=== PATIENT | female | born 1965 | race Caucasian/White ===

== ENCOUNTER 2020-12-20 10:57 | Outpatient (REF) | payer OTHER, SELFPAY ==
--- NOTE | ~2020-12-20 | MM_ITS ---
EXAMINATION: MM SCREENING DIGITAL BREAST TOMOSYNTHESIS, BILATERAL CLINICAL INFORMATION: Screening. Asymptomatic. The lifetime risk of breast cancer based on the Tyrer-Cuzick Model is 5%. COMPARISON: Mammography: 09/02/2019, 10/16/2017, 04/10/2017 TECHNIQUE: Digital breast tomosynthesis is performed in both the craniocaudal and mediolateral oblique views along with computer-aided detection (CAD). Synthesized 2D images are generated from the tomosynthesis. Additional left MLO view is provided. FINDINGS: There are scattered areas of fibroglandular density (ACR BI-RADS breast composition Category b). There are no significant masses, abnormal calcifications, or other abnormalities. There is circumscribed nodule again noted central left breast on CC view similar to prior exams. No significant changes. MM/MM tomosynthesis screening BI IMPRESSION: No mammographic evidence of malignancy. ASSESSMENT: BI-RADS 2: Benign RECOMMENDATION: Routine annual mammography screening. This patient's information was entered into a reminder system with a target due date for their next mammogram.
== END 2020-12-20 10:58 | disposition home or self-care (01) ==
LOC: HO.MAMMO 10:57
PROVIDERS: Visit Provider Internal Medicine
DX: Z12.31 Encounter for screening mammogram for malignant neoplasm of breast (principal)
CPT/HCPCS: 77063; 77067

== ENCOUNTER 2021-06-13 10:21 | Emergency (ER) | payer OTHER, SELFPAY ==
--- NOTE | ~2021-06-13 | XR_ITS ---
EXAMINATION: CR X-RAY SHOULDER AND HUMERUS LEFT CLINICAL INFORMATION: Left shoulder/arm pain status post fall. COMPARISON: None TECHNIQUE: 3 views of the left shoulder and 2 views of the left humerus were obtained. FINDINGS: There is an acute, comminuted, mildly displaced fracture at the level of the left humeral surgical neck with superolateral extension into the humeral head and greater tuberosity. The left glenohumeral joint appears intact. Mild left acromioclavicular degenerative joint changes are seen. The visualized left ribs are intact. The soft tissues are unremarkable. XR/XR humerus LT IMPRESSION: 1. Acute, comminuted proximal left humeral fracture as detailed above. 2. Mild left acromioclavicular degenerative joint changes.
--- NOTE | ~2021-06-13 | XR_ITS ---
EXAMINATION: CR X-RAY SHOULDER AND HUMERUS LEFT CLINICAL INFORMATION: Left shoulder/arm pain status post fall. COMPARISON: None TECHNIQUE: 3 views of the left shoulder and 2 views of the left humerus were obtained. FINDINGS: There is an acute, comminuted, mildly displaced fracture at the level of the left humeral surgical neck with superolateral extension into the humeral head and greater tuberosity. The left glenohumeral joint appears intact. Mild left acromioclavicular degenerative joint changes are seen. The visualized left ribs are intact. The soft tissues are unremarkable. XR/XR shoulder LT min 2V IMPRESSION: 1. Acute, comminuted proximal left humeral fracture as detailed above. 2. Mild left acromioclavicular degenerative joint changes.
[2021-06-13 10:50] VITALS: BP 140/84; PULSE 97; RESP 18; TEMP 35.7; O2SAT 100; BMI 39.6
--- NOTE | 2021-06-13 12:22 | ED.UPPEXIN ---
HPI - Extremity Injury (Upper) General Chief Complaint: Fall Stated Complaint: lt shoulder pain Time Seen by Provider: 06/13/21 12:22 Source: patient and family (son) Mode of arrival: ambulatory Limitations: no limitations History of Present Illness HPI narrative: 55-year-old female who 5 days ago in [facility] was in the shower and slipped and fell into her left shoulder. She did not hit her head, no loss of consciousness, no neck pain, no numbness or tingling in her left upper extremity. Patient went to an ER in [place], where they gave her morphine and took an x-ray and found that she had fractured her left hip proximal humerus. Patient was referred to an orthopedic doctor who she could not see until today. Patient returned from [place] last night because she want to be with her family. Patient states she has no pain unless she moves her left arm. She does have a Percocet prescription but she has only taken 1 pill out of the 10 prescribed. Related Data Previous Rx's Medication Instructions Recorded hydrochlorothiazide 25 mg tablet 25 mg PO DAILY #30 tab 01/11/21 Allergies Allergy/AdvReac Type Severity Reaction Status Date / Time No Known Allergies Allergy Unverified 05/13/20 18:31 Review of Systems Review of Systems: Constitutional : No Weight loss, No Fever, No Chills, No Night Sweats,No Fatigue, No Malaise ENT/Mouth : No Hearing loss, No Ear Pain, No Nasal Congestion, NoSinus Pain, No Hoarseness, No sore throat, No Rhinorrhea, NoSwallowing Difficulty Eyes: No Eye Pain, No Swelling, No Redness, No Foreign Body, NoDischarge, No Vision Changes Cardiovascular : No Chest Pain, No SOB, No Dyspnea on Exertion, NoOrthopnea, No Edema, No Palpitations Respiratory : No Cough, No Sputum, No Wheezing, No Smoke Exposure, No Dyspnea Gastrointestinal : No Nausea, No Vomiting, No Diarrhea, NoConstipation, No abdominal Pain, No Hematochezia, No Melena Musculoskeletal : left shoulder pain Skin : No Skin Lesions, No rash Neuro : No Weakness, No Numbness, No Paresthesias, No Loss ofConsciousness, No Dizziness, No Headache PMFSH Past Medical History Medical History (Updated 06/13/21 @ 13:07 by TY Pacheco) Mild HTN Social History Social History Advance Directives: No Advance Directives Information Provided: No Patient : No Physical Exam Vital Signs: Vital Signs: Last Vital Signs Temp 96.2 F L 06/13/21 10:50 Pulse 97 06/13/21 10:50 Resp 18 06/13/21 10:50 BP 140/84 H 06/13/21 10:50 Pulse Ox 100 06/13/21 10:50 Body Mass Index 39.6 Const: General: cooperative, no acute distress, well developed, alert and awake Nutritional Appearance: well nourished Orientation/consciousness: patient oriented x3 Limitations: no limitations Eyes: Pupils: Equal, round and reactive pupils present Neck: Neck: Yes full ROM, Yes no lymphadenopathy and Yes supple Resp: Effort & Inspection: normal respiratory effort and able to speak in complete sentences Auscultation: clear to auscultation bilaterally, no crackles, no rales, no rhonchi and no wheezes Cardio: Rate: regular rate Rhythm: regular rhythm Heart sounds: S1 normal heart sound present and S2 normal heart sound present Skin: General skin exam: no rashes or lesions noted Neuro: General: patient oriented x3, tone normal and moves all extremities Cranial nerves: Yes Equal, round and reactive pupils present Extrem: Left upper extremity: normal capillary refill and shoulder/upper arm Details: inspection abnormal, tenderness Location: of the proximal humerus, swelling Location: of the proximal humerus and axillary nerve sensory function normal; Negative for no lacerations, no ecchymosis, no crepitus, no deformity and no unsual warmth; No no cyanosis and no edema Psych: Appearance: grossly normal Affect: normal affect Attitude: cooperative Thought process: Normal thought process present Course Course Course Narrative: XR left shoulder shows: FINDINGS: There is an acute, comminuted, mildly displaced fracture at the level of the left humeral surgical neck with superolateral extension into the humeral head and greater tuberosity. The left glenohumeral joint appears intact. Mild left acromioclavicular degenerative joint changes are seen. The visualized left ribs are intact. The soft tissues are unremarkable.? XR/XR humerus LT IMPRESSION: 1. Acute, comminuted proximal left humeral fracture as detailed above. 2. Mild left acromioclavicular degenerative joint changes. Applied left shoulder mobilizer, counseled patient to take the Percocet she was prescribed from [place], referred patient to Orthopedics. Counseled rest, ice, immobilization. Patient verbalized agreement and understanding. Discharge Plan Discharge Clinical Impression: Fracture, humerus closed Qualifiers: Encounter type: initial encounter Humerus Location: proximal Fracture morphology: unspecified fracture morphology Laterality: left Qualified Code(s): S42.202A - Unspecified fracture of upper end of left humerus, initial encounter for closed fracture Patient Disposition: Home, Self-Care Instructions: Arm Fracture in Adults (ED), How to Use a Sling (ED), R.I.C.E. Treatment (ED) Additional Instructions: PLease call Orthopedics at [phone]. I have referred you, but please call them if you do not hear from them by tomorrow. Keep your sling on, and do not use your left arm. Take the Percoset you have as needed, use at night especially. If you have worsening pain, if your hand becomes numb or you cannot use your fingers, please return to be seen. ?Por favor llame a [employer] al [phone]. Lo he recomendado, akhil ll?melos si no tiene noticias de ellos para ma?michael. Mantenga puesto el cabestrillo y no utilice el brazo berhane. [place] el Percoset que tenga seg?n sea necesario, util?celo especialmente por la noche. Si tiene un dolor que empeora, si garza mano se adormece o no puede usar los dedos, regrese para que lo vean. Prescriptions: No Action hydrochlorothiazide 25 mg tablet 25 mg PO DAILY Qty: 30 RF: 6 Referrals: Tunde Raza MD [Physician] - 2 days (left mildly displaced comminuted proximal humerus fracture ) Interventions: ED Discharge Assessment Last Done: 06/13/21 13:16 Discharge Date/Time: 06/13/21 13:17 Print Language: Serbian
== END 2021-06-13 13:17 | disposition home or self-care (01) ==
PROVIDERS: Emergency Provider Student in an Organized Health Care Education/Training Program; PCP Internal Medicine
DX: S42.202A Unspecified fracture of upper end of left humerus, initial encounter for closed fracture (principal); M79.602 Pain in left arm; W18.2XXA Fall in (into) shower or empty bathtub, initial encounter; Y93.E1 Activity, personal bathing and showering; Y92.002 Bathroom of unspecified non-institutional (private) residence as the place of occurrence of the external cause; Y99.9 Unspecified external cause status; Z79.899 Other long term (current) drug therapy
CPT/HCPCS: 73030; 73060; 99283; 99284

== ENCOUNTER 2021-06-23 07:37 | Outpatient (REF) | payer OTHER, SELFPAY ==
--- NOTE | ~2021-06-23 | XR_ITS ---
EXAMINATION: XR SHOULDER, LEFT CLINICAL INFORMATION: Pain in the shoulder COMPARISON: Radiograph 06/13/2021 TECHNIQUE: Two views of the left shoulder. FINDINGS: The proximal left humeral metaphyseal fracture is again noted. There is persistent medial displacement of the distal fragment by one half shaft width. Greater tuberosity involvement again noted with minimal displacement. The glenohumeral joint remains aligned. The visualized lung is clear. The visualized ribs are intact. XR/XR shoulder LT min 2V IMPRESSION: Unchanged alignment of the proximal left humeral fracture.
== END 2021-06-23 07:38 | disposition home or self-care (01) ==
LOC: HO.HOSX 07:37
PROVIDERS: Visit Provider Physician Assistant
DX: S42.202A Unspecified fracture of upper end of left humerus, initial encounter for closed fracture (principal)
CPT/HCPCS: 73030; 99202

== ENCOUNTER 2021-07-26 07:12 | Outpatient (REF) | payer OTHER, SELFPAY ==
--- NOTE | ~2021-07-26 | XR_ITS ---
EXAMINATION: XR SHOULDER, LEFT CLINICAL INFORMATION: Fracture COMPARISON: Previous x-rays most recent May 2021 TECHNIQUE: Two views of the left shoulder. FINDINGS: There is a left humeral neck fracture. Alignment appears unchanged. There is increasing bony callus formation. Fracture line is still seen. The humeral head appears low lying with respect to the glenoid. This may be secondary to a joint effusion. There is mild arthritis at the acromioclavicular joint. Soft tissues are unremarkable. XR/XR shoulder LT min 2V IMPRESSION: Healing left humeral neck fracture.
== END 2021-07-26 07:13 | disposition home or self-care (01) ==
LOC: HO.HOSX 07:12
PROVIDERS: Visit Provider Physician Assistant
DX: S42.202D Unspecified fracture of upper end of left humerus, subsequent encounter for fracture with routine healing (principal)
CPT/HCPCS: 73030; 99212

== ENCOUNTER 2021-09-05 07:08 | Outpatient (REF) | payer OTHER, SELFPAY | END 2021-09-05 07:09 | disposition home or self-care (01) | LOC: HO.HOSX 07:08 | PROVIDERS: Visit Provider Physician Assistant | DX: Z13.89 Encounter for screening for other disorder (principal) ==

== ENCOUNTER 2021-09-09 11:17 | Outpatient (REF) | payer OTHER, SELFPAY ==
--- NOTE | ~2021-09-09 | XR_ITS ---
EXAMINATION: XR CHEST CLINICAL INFORMATION: Dyspnea COMPARISON: None TECHNIQUE: 2 views of the chest were obtained. FINDINGS: The cardiac and mediastinal contours are normal. The lung volumes are low. There is bilateral patchy infiltrates. Covid infection should be excluded. There is no pleural effusion or pneumothorax. There are degenerative changes of the spine. XR/XR chest 2V IMPRESSION: Low lung volumes and bilateral infiltrates suggestive of pneumonia. Covid infection should be excluded.
== END 2021-09-09 11:18 | disposition home or self-care (01) ==
LOC: HO.XRAY 11:17
PROVIDERS: PCP Internal Medicine; Visit Provider Internal Medicine
DX: R06.00 Dyspnea, unspecified (principal)
CPT/HCPCS: 71046

== ENCOUNTER 2021-10-04 07:42 | Outpatient (REF) | payer OTHER, SELFPAY ==
--- NOTE | ~2021-10-04 | XR_ITS ---
EXAMINATION: XR SHOULDER, LEFT CLINICAL INFORMATION: Left shoulder pain. COMPARISON: 07/26/2021 TECHNIQUE: 2 views of the left shoulder. FINDINGS: Progressive healing of the proximal humeral fracture is noted with unchanged alignment. There is increased osseous bridging at the fracture site at the surgical neck. No new fractures. Mild glenohumeral and acromioclavicular osteochondritis. XR/XR shoulder LT min 2V IMPRESSION: Progressive healing of the proximal humeral fracture. Unchanged alignment.
== END 2021-10-04 07:43 | disposition home or self-care (01) ==
LOC: HO.HOSX 07:42
PROVIDERS: Visit Provider Physician Assistant
DX: S42.202D Unspecified fracture of upper end of left humerus, subsequent encounter for fracture with routine healing (principal)
CPT/HCPCS: 73030; 99212

== ENCOUNTER 2021-11-01 07:39 | Outpatient (REF) | payer OTHER, SELFPAY | END 2021-11-01 07:40 | disposition home or self-care (01) | LOC: HO.HOSX 07:39 | PROVIDERS: Visit Provider Physician Assistant | DX: Z13.89 Encounter for screening for other disorder (principal) ==

== ENCOUNTER 2021-11-15 07:18 | Outpatient (REF) | payer OTHER, SELFPAY ==
--- NOTE | ~2021-11-15 | XR_ITS ---
EXAMINATION: XR SHOULDER, LEFT CLINICAL INFORMATION: Fracture COMPARISON: Previous x-ray 10/04/2021 TECHNIQUE: Two views of the left shoulder. FINDINGS: There is a healing fracture of the left proximal humerus. Alignment appears unchanged. No other fracture is seen. The joint spaces are normal. Soft tissues are normal. XR/XR shoulder LT min 2V IMPRESSION: Healing left proximal humerus fracture.
== END 2021-11-15 07:19 | disposition home or self-care (01) ==
LOC: HO.HOSX 07:18
PROVIDERS: Visit Provider Physician Assistant
DX: S42.202A Unspecified fracture of upper end of left humerus, initial encounter for closed fracture (principal)
CPT/HCPCS: 73030; 99212

== ENCOUNTER 2021-12-05 09:12 | Outpatient (REF) | payer OTHER, SELFPAY ==
[2021-12-05 10:33] LABS: Alanine Aminotransferase 24 U/L (0-31); Alkaline Phosphatase 146 U/L (39-117); Anion Gap 12 (12-20); Aspartate Amino Transferase 27 U/L (5-31); Bilirubin Total 0.2 mg/dL (0.0-1.0); Blood Urea Nitrogen 10 mg/dL (9-16); Calcium 10.6 mg/dL (8.4-10.2); Carbon Dioxide 24 mmol/L (22-29); Chloride 111 mmol/L (96-108); Cholesterol 156 mg/dL; Estimated Glomerular Filt Rate > 60; Glucose Fasting 79 mg/dL (60-99); HDL Cholesterol 38 mg/dL; LDL Cholesterol Calculated 80 mg/dl; Potassium 4.5 mmol/L (3.3-5.1); Sodium 142 mmol/L (135-145); Total Protein 7.5 g/dL (6.5-8.0); Triglycerides 191 mg/dL
[2021-12-05 11:10] LABS: Folate 18.7 ng/mL (> or = 4.0); Vitamin B12 344 pg/mL (200-900)
[2021-12-09 13:12] LABS: Vitamin D 25-OH, D2 <4 ng/mL; Vitamin D 25-OH, D3 16 ng/mL; Vitamin D 25-OH, Total 16 ng/mL (30-100)
[2021-12-11 00:41] LABS: Intrinsic Factor Antibodies Negative (Negative)
[2021-12-11 09:47] LABS: Parietal Cell Antibody <=20.0 Unit (<=20.0)
== END 2021-12-05 09:13 | disposition home or self-care (01) ==
LOC: HO.LAB 09:12
PROVIDERS: PCP Internal Medicine; Visit Provider Internal Medicine
DX: I10 Essential (primary) hypertension (principal); E78.5 Hyperlipidemia, unspecified; E53.8 Deficiency of other specified B group vitamins; E55.9 Vitamin D deficiency, unspecified
CPT/HCPCS: 36415; 80053; 80061; 82306; 82607; 82746; 83516; 86340

== ENCOUNTER → 2021-12-13 13:41 | Outpatient (BNVA) | payer OTHER, SELFPAY | PROVIDERS: PCP Internal Medicine; Visit Provider Internal Medicine Endocrinology, Diabetes & Metabolism | DX: E83.52 Hypercalcemia (principal) | CPT/HCPCS: 99212 ==

== ENCOUNTER 2021-12-14 10:14 | Outpatient (REF) | payer OTHER, SELFPAY ==
[2021-12-16 05:26] LABS: Rubeola IgG (Measles) >300.00 AU/mL
[2021-12-17 01:46] LABS: TS Negative Control Passed; TS Panel A 1; TS Panel B 0; TS Positive Control Passed; TSpotTB Negative (Negative)
== END 2021-12-14 10:15 | disposition home or self-care (01) ==
LOC: HO.LAB 10:14
PROVIDERS: PCP Internal Medicine; Visit Provider Internal Medicine
DX: Z01.84 Encounter for antibody response examination (principal); Z11.1 Encounter for screening for respiratory tuberculosis
CPT/HCPCS: 36415; 86481; 86735; 86762; 86765

== ENCOUNTER 2021-12-23 12:00 | Outpatient (RCR) | payer OTHER, SELFPAY ==
--- NOTE | 2021-10-19 13:27 | MHC.PT.EP ---
[facility] [place] Office [place] Office [place] Office [address] Josaih Prabhakar [address] [phone] F: [phone] F: [phone] F: [phone] F: [phone] Physical Therapy Plan of Care Date of Evaluation: Date of Surgery: N/A Diagnosis: fracture of upper end of left humerus Assessment: pt presents to PT post-proximal humeral fx that occurred back in May 2021. pt presents to physical therapy with pain, decreased range of motion, decreased strength, impaired functional mobility, impaired postural awareness. pt is a good candidate for skilled PT due to age, potential remediation of impairments, typical disease/condition progression and prognosis, comorbidities, and motivation. pt would benefit from tailored strengthening and stretching exercise program, functional training, postural re-training, neuromuscular re-education, modalities as needed for pain, equipment safety demonstration. Frequency and Duration: The patient will be seen 2x/wk for 8 wks Short Term Goals: pt will be I w/ HEP to promote self-management of condition. pt will improve L shoulder flexion AROM by 15 degrees to promote ease in reaching for cooking utensils in cabinets for meal prep. Long-Term Goals: pt will improve L functional external rotation AROM to reach at least C3 to promote ease in washing and brushing her hair. pt will improve L shoulder and elbow flexion strength by 1 MMT grade to promote ease in carrying groceries. Treatment Plan: Modalities to reduce pain, spasms and effusion. Manual therapy to restore motion and function. Therapeutic exercise to improve strength and flexibility. Neuromuscular re-education for posture and balance. Therapeutic activities to return to functional activities of daily living. Electronically signed by: Sabina Brunson PT, DPT Please sign and return to therapist. Thank you for your referral.
--- NOTE | 2021-12-23 13:30 | MHC.PT.DC ---
[facility] [place] Office [place] Office [place] Office [address] Josiah Prabhakar [address] [facility] [phone] F: [phone] F: [phone] F: [phone] F: [phone] Physical Therapy Discharge Report Diagnosis: fracture of upper end of left humerus Date of Surgery: N/A Date of Evaluation: 10/19/21 Date of Discharge: 12/23/21 Treatments to Date: 17 Cancellations to Date: 2 No Shows to Date: 0 Discharge Status: Improved Function Independent with HEP Discharge Summary: The patient overall has been consistently reporting no pain in her shoulder. She has improved her active range of motion in all planes significantly and her strength is within functional limits. She was given an updated HEP to continue to maintain her range and improve her strength. She is independent with her home exercise program. The patient is discharged from this physical therapy plan of care to her home exercise program. Electronically signed by: Sabina Brunson PT, DPT Please sign and return to therapist. Thank you for your referral.
== END 2021-12-23 13:31 | disposition home or self-care (01) ==
LOC: HO.PT 12:00
PROVIDERS: PCP Internal Medicine; Visit Provider Physician Assistant
DX: S42.202D Unspecified fracture of upper end of left humerus, subsequent encounter for fracture with routine healing (principal)
CPT/HCPCS: 97110; 97140; 97162; 97164; 97530

== ENCOUNTER 2022-03-08 15:50 | Outpatient (REF) | payer OTHER, SELFPAY ==
[2022-03-14 01:06] LABS: HPV mRNA E6/E7 rflx Not Detected (Not Detected)
== END 2022-03-08 15:51 | disposition home or self-care (01) ==
LOC: HO.LNP 15:50
PROVIDERS: Visit Provider Advanced Practice Midwife
DX: Z01.419 Encounter for gynecological examination (general) (routine) without abnormal findings (principal); Z11.51 Encounter for screening for human papillomavirus (HPV)
CPT/HCPCS: 87624; 88142

== ENCOUNTER 2022-05-11 08:45 | Outpatient (REF) | payer OTHER, SELFPAY ==
--- NOTE | ~2022-05-11 | MM_ITS ---
EXAMINATION: MM SCREENING DIGITAL BREAST TOMOSYNTHESIS, BILATERAL CLINICAL INFORMATION: Screening. Asymptomatic. The lifetime risk of breast cancer based on the Tyrer-Cuzick Model is 5%. COMPARISON: Mammography: 12/20/2020, 09/02/2019, 10/16/2017 TECHNIQUE: Digital breast tomosynthesis is performed in both the craniocaudal and mediolateral oblique views along with computer-aided detection (CAD). Synthesized 2D images are generated from the tomosynthesis. Additional bilateral MLO views are provided. FINDINGS: There are scattered areas of fibroglandular density (ACR BI-RADS breast composition Category b). There are no significant masses, abnormal calcifications, or other abnormalities. Parenchymal pattern is similar to prior studies. There is no developing density or architectural abnormality. Circumscribed nodule central left breast on CC view is stable from prior studies. The axilla and skin contours are unremarkable. No significant changes. MM/MM tomosynthesis screening BI IMPRESSION: No mammographic evidence of malignancy. ASSESSMENT: BI-RADS 2: Benign RECOMMENDATION: Routine annual mammography screening. This patient's information was entered into a reminder system with a target due date for their next mammogram.
== END 2022-05-11 08:46 | disposition home or self-care (01) ==
LOC: HO.MAMMO 08:45
PROVIDERS: PCP Internal Medicine; Visit Provider Advanced Practice Midwife
DX: Z12.31 Encounter for screening mammogram for malignant neoplasm of breast (principal)
CPT/HCPCS: 77063; 77067

== ENCOUNTER 2022-06-07 09:49 | Outpatient (REF) | payer OTHER, SELFPAY ==
[2022-06-07 10:50] LABS: Albumin Level 4.1 g/dL (3.5-5.0); Calcium 10.2 mg/dL (8.4-10.2)
[2022-06-07 11:15] LABS: Vitamin D 25-OH Total 34.1 ng/mL (>30)
[2022-06-08 13:21] LABS: Calcium (PTHI) 10.5 mg/dL (8.6-10.4); PTHI 164 pg/mL (16-77)
== END 2022-06-07 09:50 | disposition home or self-care (01) ==
LOC: HO.LAB 09:49
PROVIDERS: PCP Internal Medicine; Visit Provider Internal Medicine Endocrinology, Diabetes & Metabolism
DX: E83.52 Hypercalcemia (principal)
CPT/HCPCS: 36415; 82040; 82306; 82310; 83970

== ENCOUNTER 2022-06-14 14:12 | Outpatient (REF) | payer OTHER, SELFPAY ==
--- NOTE | ~2022-06-14 | MM_ITS ---
EXAMINATION: BONE DENSITOMETRY CLINICAL INDICATION: Hypercalcemia. COMPARISON: None (current study represents initial baseline exam). TECHNIQUE: Using a Notorious DXA System (software version: 13.1) manufactured by [employer], dual-energy x-ray absorptiometry was performed of the lumbar spine, left hip, left forearm radius 33%. The images are of good technical quality. Summary results are attached. FINDINGS: AP SPINE L1-L4: BMD 0.988 g/cm2, Z-score -0.9, T-score -1.6, osteopenia. LEFT FEMUR, NECK: BMD 0.808 g/cm2, Z-score -0.7, T-score -1.7, osteopenia. LEFT FEMUR, TOTAL: BMD 0.910 g/cm2, Z-score -0.2, T-score -0.8, normal. LEFT FOREARM RADIUS 33%: BMD 0.626 g/cm2, Z-score -2.1, T-score -2.9, osteoporosis. IDENTIFIED RISK FACTORS: Early menopause, history of fracture (adult), hyperparathyroidism, secondary osteoporosis. HISTORY OF FRACTURE: Humerus. MEDICATIONS: Vitamin D. MM/XR DEXA appendicular skeleton IMPRESSION: 1. DIAGNOSIS: Osteoporosis based on the lowest T-score value of -2.9 in the forearm radius 33% and history of fracture of humerus applying World Health Organization criteria. 2. 10-YEAR FRACTURE RISK PREDICTION, FRAX: According to the guidelines, FRAX calculation should only be performed on patients in the osteopenia bone density category. Therefore, FRAX was not performed on this patient. 3. Treatment Recommendations: NOF guidelines recommend consideration for treatment in postmenopausal women and men age 50 and older presenting with the following: -A hip or vertebral (clinical or morphometric) fracture. -T-score less than or equal to -2.5 at the femoral neck or spine after appropriate evaluation to exclude secondary causes. -Low bone mass at the hip or spine and a 10-year fracture probability by FRAX of greater than or equal to 3% for hip fracture or greater than or equal to 20% for major osteoporotic fracture based on the [place] adapted WHO algorithm. 4. Other Recommendations: All treatment decisions require clinical judgment and consideration of individual patient factors, including patient preferences, comorbidities, previous drug use, risk factors not captured in the FRAX model (e.g. frailty, falls, vitamin D deficiency, increased bone turnover, interval significant decline in bone density) and possible under or overestimation of fracture risk by FRAX. Additional medical evaluation for secondary cause of low bone mineral density may be appropriate. FUTURE SCAN RECOMMENDATION: People with diagnosed cases of osteoporosis or at high risk for fracture should have regular bone mineral density tests. For patients eligible for Medicare, routine testing is allowed once every 2 years. The testing frequency can be increased to one year for patients who have rapidly progressing disease, those who are receiving or discontinuing medical therapy to restore bone mass, or have additional risk factors.
[2022-06-14 15:49] LABS: Alanine Aminotransferase 28 U/L (0-31); Albumin Level 4.2 g/dL (3.5-5.0); Alkaline Phosphatase 159 U/L (39-117); Anion Gap 15 (12-20); Aspartate Amino Transferase 34 U/L (5-31); Bilirubin Total 0.5 mg/dL (0.0-1.0); Blood Urea Nitrogen 13 mg/dL (9-16); Calcium 10.4 mg/dL (8.4-10.2); Carbon Dioxide 23 mmol/L (22-29); Chloride 107 mmol/L (96-108); Cholesterol 154 mg/dL; Estimated Glomerular Filt Rate 52; Glucose Fasting 116 mg/dL (60-99); HDL Cholesterol 45 mg/dL; LDL Cholesterol Calculated 85 mg/dl; Potassium 3.7 mmol/L (3.3-5.1); Sodium 141 mmol/L (135-145); Total Protein 7.8 g/dL (6.5-8.0); Triglycerides 121 mg/dL
== END 2022-06-14 14:13 | disposition home or self-care (01) ==
LOC: HO.MAMMO 14:12
PROVIDERS: PCP Internal Medicine; Visit Provider Internal Medicine Endocrinology, Diabetes & Metabolism
DX: Z13.820 Encounter for screening for osteoporosis (principal); Z78.0 Asymptomatic menopausal state; E78.5 Hyperlipidemia, unspecified; E83.52 Hypercalcemia
CPT/HCPCS: 36415; 77081; 80053; 80061

== ENCOUNTER 2022-06-19 11:16 | Outpatient (REF) | payer OTHER, SELFPAY ==
[2022-06-19 12:50] LABS: Creatinine, mg/dL 53.71
[2022-06-19 13:12] LABS: Creatinine, 24Hr Urine 1.1 G/Day (1.0-2.0); Total Volume 24 Hour Urine 2100 mL
[2022-06-21 17:21] LABS: Calcium, 24 Hr Urine 193 mg/24 h; Calcium/Creatinine Ratio 164 mg/g creat (30-275); Creatinine 24Hr Urine 1.18 g/24 h (0.50-2.15)
== END 2022-06-19 11:17 | disposition home or self-care (01) ==
LOC: HO.LNP 11:16
PROVIDERS: Visit Provider Internal Medicine Endocrinology, Diabetes & Metabolism
DX: E83.52 Hypercalcemia (principal)
CPT/HCPCS: 82340; 82570

== ENCOUNTER → 2022-07-05 15:55 | Outpatient (BNVA) | payer OTHER, SELFPAY | PROVIDERS: PCP Internal Medicine; Visit Provider Internal Medicine Endocrinology, Diabetes & Metabolism | DX: E83.52 Hypercalcemia (principal) | CPT/HCPCS: 99212 ==

== ENCOUNTER 2022-12-09 08:45 | Outpatient (REF) | payer OTHER, SELFPAY ==
[2022-12-09 09:30] LABS: Alanine Aminotransferase 24 U/L (0-31); Alkaline Phosphatase 170 U/L (39-117); Anion Gap 11 (12-20); Aspartate Amino Transferase 26 U/L (5-31); Bilirubin Total 0.6 mg/dL (0.0-1.0); Blood Urea Nitrogen 14 mg/dL (9-16); Carbon Dioxide 26 mmol/L (22-29); Chloride 112 mmol/L (96-108); Cholesterol 150 mg/dL; Estimated Glomerular Filt Rate 56; Glucose Fasting 89 mg/dL (60-99); HDL Cholesterol 43 mg/dL; LDL Cholesterol Calculated 85 mg/dl; Potassium 4.8 mmol/L (3.3-5.1); Sodium 144 mmol/L (135-145); Total Protein 7.3 g/dL (6.5-8.0); Triglycerides 110 mg/dL
[2022-12-09 09:58] LABS: Folate 13.8 ng/mL (> or = 4.0); Vitamin B12 540 pg/mL (200-900); Vitamin D 25-OH Total 37.1 ng/mL (>30)
== END 2022-12-09 08:46 | disposition home or self-care (01) ==
LOC: HO.LAB 08:45
PROVIDERS: PCP Internal Medicine; Visit Provider Internal Medicine
DX: E53.8 Deficiency of other specified B group vitamins (principal); E55.9 Vitamin D deficiency, unspecified; E78.5 Hyperlipidemia, unspecified
CPT/HCPCS: 36415; 80053; 80061; 82306; 82607; 82746

== ENCOUNTER → 2023-01-15 07:44 | Outpatient (BNVA) | payer OTHER, SELFPAY | PROVIDERS: PCP Internal Medicine; Referring Provider Internal Medicine; Visit Provider Physician Assistant | DX: Z01.818 Encounter for other preprocedural examination (principal); K64.9 Unspecified hemorrhoids; Z86.010 Personal history of colon polyps | CPT/HCPCS: 99202 ==

== ENCOUNTER 2023-04-14 09:08 | Outpatient (REF) | payer OTHER, SELFPAY | END 2023-04-14 09:09 | disposition home or self-care (01) | LOC: HO.LAB 09:08 | PROVIDERS: PCP Internal Medicine; Visit Provider Internal Medicine | DX: Z13.89 Encounter for screening for other disorder (principal) ==

== ENCOUNTER 2023-04-18 16:35 | Outpatient (AMB) | payer OTHER, SELFPAY ==
[2023-04-18 16:51] VITALS: BP 130/78; BMI 32.9
--- NOTE | 2023-04-18 16:51 | A.OFFPC_ITS ---
Vital Signs 04/18/23 16:51 Height 5 ft 1 in Weight 174 lb BMI 32.9 BP 130/78 Blood Pressure Location Lt brachial Position Sitting Intake Visit Reasons: bp Intake Note: Patient here for a follow bp Director Transition Required: No Accompanied by: Self / Same As Patient Allergies No Known Allergies Allergy (Verified 04/18/23 17:08) Medication List - Last Reconciled 04/18/23 by Natividad Valdes MD atorvastatin 40 mg PO QPM 90 days bisacodyl (Dulcolax (bisacodyl)) 10 mg (2 x 5 mg) PO ONCE 1 day cholecalciferol (vitamin D3) 50 mcg PO DAILY 90 days cyanocobalamin (vitamin B-12) 1,000 mcg PO DAILY 90 days folic acid 1 mg PO DAILY 90 days hydrocortisone 2.5% (Proctosol HC) 1 appl [place] BEDTIME PRN lisinopril 30 mg PO DAILY 90 days methylcellulose (laxative) (Citrucel) 500 mg PO BID nabumetone 750 mg PO BID polyethylene glycol 3350 (Miralax) 238 grams PO ONCE PRN 1 day Tobacco use date assessed: 12/11/22 Dental Screening Dental Screen Date: 04/18/23 Did you have a dental visit in the last 12 months?: No Did you have a dental problem in the last 6 months where you did not have access to dental care?: No Was dental information given to patient?: Patient has dentist HPI HPI Comments History of Present Illness Details This is a 57-year-old female with hypertension, dyslipidemia, B12 deficiency and primary hyperparathyroidism that comes today for follow-up on her conditions. Blood pressure stable. Last cholesterol was well control. Vitamin B12 on supplements. Will have parathyroid surgery during fall. No chest pain or shortness of breath. [facility] Medical History B12 deficiency Class 1 obesity with body mass index (BMI) of 31.0 to 31.9 in adult Dyslipidemia Dyspnea Essential hypertension Hypercalcemia Hypovitaminosis D Immunization due Physical exam Surgical History H/O hemorrhoidectomy History of tubal ligation Family History Father Hypertension Mother No problems noted. Social History Housing: Apartment Alcohol intake: current Alcohol intake frequency: holidays/special occasions only Alcohol type: wine Patient Tobacco Use Status: Former Tobacco user Tobacco use type: Cigarette e-Cigarette/Vaping Use: Never Used Second Hand Smoke Exposure: No service: No Current occupational status: unemployed Current occupation: rt hand Cognitive needs: No Hearing needs: No Vision needs: No Questionnaire PHQ-9 Over the last 2 weeks, how often have you been bothered by any of the following problems? 1. Little interest or pleasure in doing things: not at all 2. Feeling down, depressed, or hopeless: not at all 3. Trouble falling or staying asleep, or sleeping too much: not at all 4. Feeling tired or having little energy: not at all 5. Poor appetite or overeating: not at all 6. Feeling bad about yourself - or that you are a failure or have let yourself or your family down: not at all 7. Trouble concentrating on things, such as reading the newspaper or watching television: not at all 8. Moving or speaking so slowly that other people could have noticed. Or the opposite - being so fidgety or restless that you have been moving around a lot more than usual: not at all 9. Thoughts that you would be better off or of hurting yourself in some way: not at all Total score: 0 Depression Screening Interpretation: Negative 33033 - PHQ-9 Billing: Yes Source: Developed by Drs. Martin Katz, Tom Martines and colleagues, with an educational teresa from [employer]. Thrive Questionnaire Date Thrive assessed: 12/11/22 XIMENA-7 AMB Questionnaire XIMENA-7 Date XIMENA - 7 assessed: 12/11/22 Source: Developed by Drs. Martin Katz, Tom Martines and colleagues, with an educational teresa from [employer]. Review of Systems Const All systems reviewed & are unremarkable except as noted in HPI and below Eyes Reports no additional complaints, Denies change in vision and Denies other visual disturbances Card Denies chest pain at rest, Denies chest pain with activity, Denies edema, Denies irregular heart rhythm, Denies claudication, Denies dyspnea, Denies dyspnea on exertion, Denies orthopnea, Denies paroxysmal nocturnal dyspnea and Denies slow heart rate Resp Denies cough, Denies dyspnea and Denies dyspnea on exertion GI Denies abdominal pain, Denies change in bowel habits, Denies excessive flatus, Denies nausea and Denies vomiting Denies urinary incontinence, Denies urinary hesitancy and Denies urinary urgency Musc Denies abnormal gait, Denies atrophy, Denies deformity and Denies limited range of motion Skin/Breast Denies bleeding lesions, Denies changing lesions and Denies rash Neuro Denies abnormal gait and Denies lack of coordination Physical exam (Primary Care) Vital Signs: Last Vital Signs BP 130/78 04/18/23 16:51 BMI result Body Mass Index 32.9 Tobacco/Smoking Status: Tobacco use Status Tobacco use date assessed 12/11/22 04/18/23 16:54 Patient Tobacco Use Status Former Tobacco user 04/18/23 16:54 Tobacco use type Cigarette 04/18/23 16:54 e-Cigarette/Vaping Use Never Used 04/18/23 16:54 PHQ-9: PHQ-9 Score PHQ-9: Total score 0 04/18/23 17:20 Depression Screening Interpretation: Negative Thrive Assessment: Date of Thrive Assessment Date Thrive assessed 12/11/22 04/18/23 16:54 Eyes General: appearance normal, both eyes and all related structures Eyelids: Yes eyelids normal Conjunctivae: conjunctivae normal Neck Neck: Yes normal visual inspection and Yes supple Resp Effort & Inspection: normal respiratory effort Auscultation: clear to auscultation bilaterally Cardio Jugular venous distension: no JVD Rate: regular rate Rhythm: regular rhythm Heart sounds: S1 normal heart sound present and S2 normal heart sound present Extrem General: Yes full ROM Assessment and Plan Assessment & Plan (1) Essential hypertension: Code(s): I10 - Essential (primary) hypertension Plan: Continue lisinopril. Blood pressure goal is equal or less than 130/80. (2) Dyslipidemia: Code(s): E78.5 - Hyperlipidemia, unspecified Plan: Continue statins. (3) B12 deficiency: Code(s): E53.8 - Deficiency of other specified B group vitamins Plan: Continue vitamin B12 supplements. (4) Primary hyperparathyroidism: Code(s): E21.0 - Primary hyperparathyroidism Plan: Will have surgery in fall. Orders: Orders Lipid Panel 4 Months E78.5 - Hyperlipidemia, unspecified Vitamin D 25-OH Total 4 Months E55.9 - Vitamin D deficiency, unspecified Vitamin B12 and Folate 4 Months E53.8 - Deficiency of other specified B group vitamins Comprehensive [place]. Panel Fast 4 Months I10 - Essential (primary) hypertension Coding Level of Care Code Est Pt Level 4 (64458) Diagnoses Essential hypertension I10 Dyslipidemia E78.5 B12 deficiency E53.8 Primary hyperparathyroidism E21.0 Time Spent (min) 22
== END 2023-04-18 17:18 | disposition home or self-care (01) ==
PROVIDERS: PCP Internal Medicine; Visit Provider Internal Medicine
DX: I10 Essential (primary) hypertension (principal); E78.5 Hyperlipidemia, unspecified; E53.8 Deficiency of other specified B group vitamins; E21.0 Primary hyperparathyroidism
CPT/HCPCS: 99214

== ENCOUNTER 2023-05-22 15:51 | Outpatient (REF) | payer OTHER, SELFPAY ==
--- NOTE | ~2023-05-22 | MM_ITS ---
EXAMINATION: MM SCREENING DIGITAL BREAST TOMOSYNTHESIS, BILATERAL CLINICAL INFORMATION: Screening. Asymptomatic. COMPARISON: Mammography: This study is compared with prior exams dating back to 2017. TECHNIQUE: Digital breast tomosynthesis is performed in both the craniocaudal and mediolateral oblique views along with computer-aided detection (CAD). Synthesized 2D images are generated from the tomosynthesis. FINDINGS: The breasts are almost entirely fatty (ACR BI-RADS breast composition Category a). There are no significant masses, abnormal calcifications, or other abnormalities. MM/MM tomosynthesis screening BI IMPRESSION: No mammographic evidence of malignancy. ASSESSMENT: BI-RADS BI-RADS 1 - Negative RECOMMENDATION: Routine annual mammography screening. 1 year F/U This examination should not preclude the clinical evaluation of a suspicious palpable abnormality. This patient's information was entered into a reminder system with a target due date for their next mammogram.
== END 2023-05-22 15:52 | disposition home or self-care (01) ==
LOC: HO.MAMMO 15:51
PROVIDERS: PCP Internal Medicine; Visit Provider Internal Medicine
DX: Z12.31 Encounter for screening mammogram for malignant neoplasm of breast (principal)
CPT/HCPCS: 77063; 77067

== ENCOUNTER → 2023-05-22 16:30 | Outpatient (BNV) | payer OTHER, SELFPAY | PROVIDERS: PCP Internal Medicine; Visit Provider Radiology Diagnostic Radiology | DX: Z12.31 Encounter for screening mammogram for malignant neoplasm of breast (principal) | CPT/HCPCS: 77063; 77067 ==

== ENCOUNTER 2023-07-28 07:04 | Outpatient (REF) | payer OTHER, SELFPAY ==
[2023-07-28 07:58] LABS: Alanine Aminotransferase 20 U/L (0-31); Albumin Level 3.8 g/dL (3.5-5.0); Alkaline Phosphatase 141 U/L (39-117); Anion Gap 10 (12-20); Aspartate Amino Transferase 27 U/L (5-31); Bilirubin Total 0.3 mg/dL (0.0-1.0); Blood Urea Nitrogen 11 mg/dL (9-16); Calcium 9.7 mg/dL (8.4-10.2); Carbon Dioxide 25 mmol/L (22-29); Chloride 113 mmol/L (96-108); Cholesterol 152 mg/dL (<200); Estimated Glomerular Filt Rate > 60; Glucose Fasting 87 mg/dL (60-99); HDL Cholesterol 53 mg/dL (>40); LDL Cholesterol Calculated 71 mg/dL (<100); Potassium 4.4 mmol/L (3.3-5.1); Sodium 144 mmol/L (135-145); Total Protein 7.5 g/dL (6.5-8.0); Triglycerides 140 mg/dL (<150)
[2023-07-28 08:12] LABS: Vitamin D 25-OH Total 29.7 ng/mL (>30)
[2023-07-28 08:25] LABS: Vitamin B12 492 pg/mL (200-900)
== END 2023-07-28 07:05 | disposition home or self-care (01) ==
LOC: HO.LAB 07:04
PROVIDERS: PCP Internal Medicine; Visit Provider Internal Medicine
DX: I10 Essential (primary) hypertension (principal); E78.5 Hyperlipidemia, unspecified; E53.8 Deficiency of other specified B group vitamins; E55.9 Vitamin D deficiency, unspecified
CPT/HCPCS: 36415; 80053; 80061; 82306; 82607; 82746

== ENCOUNTER 2023-08-15 16:09 | Outpatient (AMB) | payer OTHER, SELFPAY ==
[2023-08-15 16:10] VITALS: BP 140/78; BMI 32.5
--- NOTE | 2023-08-15 16:10 | MHC.PC.OV ---
Vital Signs 08/15/23 16:10 Height 5 ft 1 in Weight 172 lb BMI 32.5 BP 140/78 H Blood Pressure Location Lt brachial Position Sitting Intake Visit Reasons: 4 month f/u Intake Note: Patient here for a 4 month follow up [employer] Sticker Required: No Accompanied by: Self / Same As Patient Allergies No Known Allergies Allergy (Verified 08/15/23 16:22) Medication List - Last Reconciled 08/15/23 by Natividad Valdes MD atorvastatin 40 mg PO QPM 90 days cholecalciferol (vitamin D3) 50 mcg PO DAILY 90 days cyanocobalamin (vitamin B-12) 1,000 mcg PO DAILY 90 days folic acid 1 mg PO DAILY 90 days hydrocortisone 2.5% (Proctosol HC) 1 appl [place] BEDTIME PRN lisinopril 30 mg PO DAILY 90 days methylcellulose (laxative) (Citrucel) 500 mg PO BID nabumetone 750 mg PO BID Tobacco use date assessed: 12/11/22 HPI HPI Comments History of Present Illness Details This is a 58-year-old female with hypertension, dyslipidemia, B12 deficiency and primary hyperparathyroidism that comes today for follow-up on her conditions. Blood pressure borderline normal to elevated. Cholesterol stable. On B12 supplements for low vitamin B12. Has primary hyperparathyroidism and surgery still pending. No chest pain or shortness of breath. [facility] Medical History Hypovitaminosis D Immunization due Hypercalcemia Physical exam Dyspnea Class 1 obesity with body mass index (BMI) of 31.0 to 31.9 in adult Dyslipidemia B12 deficiency Essential hypertension Surgical History H/O hemorrhoidectomy History of tubal ligation Family History Father Hypertension Mother No problems noted. Social History Housing: Apartment Alcohol intake: current Alcohol intake frequency: holidays/special occasions only Alcohol type: wine Patient Tobacco Use Status: Former Tobacco user Tobacco use type: Cigarette e-Cigarette/Vaping Use: Never Used Second Hand Smoke Exposure: No service: No Current occupational status: unemployed Current occupation: rt hand Cognitive needs: No Hearing needs: No Vision needs: No Questionnaire Thrive Questionnaire Date Thrive assessed: 12/11/22 XIMENA-7 AMB Questionnaire XIMENA-7 Date XIMENA - 7 assessed: 12/11/22 Source: Developed by Drs. Martin Katz, Amberly Morillo, Tom Mars and colleagues, with an educational teresa from [employer]. Review of Systems Const All systems reviewed & are unremarkable except as noted in HPI and below Eyes Reports no additional complaints, Denies change in vision and Denies other visual disturbances Card Denies chest pain at rest, Denies chest pain with activity, Denies edema, Denies irregular heart rhythm, Denies claudication, Denies dyspnea, Denies dyspnea on exertion, Denies orthopnea, Denies paroxysmal nocturnal dyspnea and Denies slow heart rate Resp Denies cough, Denies dyspnea and Denies dyspnea on exertion GI Denies abdominal pain, Denies change in bowel habits, Denies excessive flatus, Denies nausea and Denies vomiting Denies urinary incontinence, Denies urinary hesitancy and Denies urinary urgency Musc Denies abnormal gait, Denies atrophy, Denies deformity and Denies limited range of motion Skin/Breast Denies bleeding lesions, Denies changing lesions and Denies rash Neuro Denies abnormal gait, Denies behavioral changes and Denies lack of coordination Psych Denies behavioral changes Physical exam (Primary Care) Vital Signs: Last Vital Signs BP 140/78 H 08/15/23 16:10 BMI result Body Mass Index 32.5 Tobacco/Smoking Status: Tobacco use Status Tobacco use date assessed 12/11/22 08/15/23 16:17 Patient Tobacco Use Status Former Tobacco user 08/15/23 16:17 Tobacco use type Cigarette 08/15/23 16:17 e-Cigarette/Vaping Use Never Used 08/15/23 16:17 Thrive Assessment: Date of Thrive Assessment Date Thrive assessed 12/11/22 08/15/23 16:17 Eyes General: appearance normal, both eyes and all related structures Eyelids: Yes eyelids normal Conjunctivae: conjunctivae normal Neck Neck: Yes normal visual inspection and Yes supple Resp Effort & Inspection: normal respiratory effort Auscultation: clear to auscultation bilaterally Cardio Jugular venous distension: no JVD Rate: regular rate Rhythm: regular rhythm Heart sounds: S1 normal heart sound present and S2 normal heart sound present Extrem General: Yes full ROM Office Procedures Flu Questionnaire Does the patient have a severe egg allergy?: No Immunizations flu vacc [id number] 6mos up(PF) 60 mcg(15 mcgx4)/0.5 mL IM syringe Performing Provider: Natividad Valdes MD [facility] [place] [facility] Documented (not given) by: ERICA Kuhn on 08/15/23 16:18 Reason Not Given: Patient Refused Assessment and Plan Assessment & Plan (1) Primary hyperparathyroidism: Code(s): E21.0 - Primary hyperparathyroidism Plan: Pending for surgery. (2) Essential hypertension: Code(s): I10 - Essential (primary) hypertension Plan: Continue lisinopril. Blood pressure goal is equal or less than 130/80. (3) Dyslipidemia: Code(s): E78.5 - Hyperlipidemia, unspecified Plan: Continue statins. (4) B12 deficiency: Code(s): E53.8 - Deficiency of other specified B group vitamins Plan: Continue B12 supplement. Orders: Orders Lipid Panel 4 Months E78.5 - Hyperlipidemia, unspecified Vitamin B12 and Folate 4 Months E53.8 - Deficiency of other specified B group vitamins Influenza [id number] Immunization Today Z23 - Encounter for immunization Vitamin D 25-OH Total 4 Months E55.9 - Vitamin D deficiency, unspecified Comprehensive [place]. Panel Fast 4 Months E21.0 - Primary hyperparathyroidism Coding Level of Care Code Est Pt Level 4 (39616) Diagnoses Primary hyperparathyroidism E21.0 Essential hypertension I10 Dyslipidemia E78.5 B12 deficiency E53.8 Time Spent (min) 23
== END 2023-08-15 16:31 | disposition home or self-care (01) ==
PROVIDERS: PCP Internal Medicine; Visit Provider Internal Medicine
DX: E21.0 Primary hyperparathyroidism (principal); I10 Essential (primary) hypertension; E78.5 Hyperlipidemia, unspecified; E53.8 Deficiency of other specified B group vitamins
CPT/HCPCS: 99214

== ENCOUNTER 2023-12-01 09:20 | Outpatient (REF) | payer OTHER, SELFPAY ==
[2023-12-01 11:23] LABS: Alanine Aminotransferase 20 U/L (0-31); Albumin Level 3.8 g/dL (3.5-5.0); Alkaline Phosphatase 141 U/L (39-117); Anion Gap 8 (12-20); Aspartate Amino Transferase 23 U/L (5-31); Bilirubin Total 0.4 mg/dL (0.0-1.0); Blood Urea Nitrogen 12 mg/dL (9-16); Carbon Dioxide 25 mmol/L (22-29); Chloride 112 mmol/L (96-108); Cholesterol 188 mg/dL (<200); Estimated Glomerular Filt Rate > 60; Glucose Fasting 82 mg/dL (60-99); HDL Cholesterol 44 mg/dL (>40); LDL Cholesterol Calculated 105 mg/dL (<100); Potassium 4.4 mmol/L (3.3-5.1); Sodium 141 mmol/L (135-145); Total Protein 7.8 g/dL (6.5-8.0); Triglycerides 198 mg/dL (<150)
[2023-12-01 11:41] LABS: Vitamin D 25-OH Total 28.7 ng/mL (>30)
[2023-12-01 12:29] LABS: Folate 13.9 ng/mL (> or = 4.0); Vitamin B12 228 pg/mL (200-900)
== END 2023-12-01 09:21 | disposition home or self-care (01) ==
LOC: HO.LAB 09:20
PROVIDERS: PCP Internal Medicine; Visit Provider Internal Medicine
DX: E78.5 Hyperlipidemia, unspecified (principal); E53.8 Deficiency of other specified B group vitamins; E21.0 Primary hyperparathyroidism; E55.9 Vitamin D deficiency, unspecified
CPT/HCPCS: 36415; 80053; 80061; 82306; 82607; 82746

== ENCOUNTER 2023-12-19 16:27 | Outpatient (AMB) | payer OTHER, SELFPAY ==
[2023-12-19 16:28] VITALS: BP 152/80; BMI 32.9
--- NOTE | 2023-12-19 16:28 | MHC.PC.OV ---
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 Accompanied by: Self / Same As Patient Allergies No Known Allergies Allergy (Verified 12/19/23 16:51) Medication List - Last Reconciled 12/19/23 by Natividad Valdes MD atorvastatin 40 mg PO QPM 90 days cholecalciferol (vitamin D3) 50 mcg PO DAILY 90 days folic acid 1 mg PO DAILY 90 days hydrocortisone 2.5% (Proctosol HC) 1 appl [place] BEDTIME PRN lisinopril 30 mg PO DAILY 90 days methylcellulose (laxative) (Citrucel) 500 mg PO BID nabumetone 750 mg PO BID Tobacco use date assessed: 12/19/23 Dental Screening Dental Screen Date: 12/19/23 Did you have a dental visit in the last 12 months?: No Did you have a dental problem in the last 6 months where you did not have access to dental care?: No Was dental information given to patient?: Patient has dentist HPI HPI Comments History of Present Illness Details This is a 58-year-old female that comes for her physical exam. Last mammogram was 2022. Last Pap smear was 2021. Last colonoscopy was 2013 showing hyperplastic polyp and tubular adenoma. She has been seen by Gastroenterology and needs to call them up to schedule a colonoscopy. Last bone density was 2021 showing osteoporosis and this will be repeated. She has primary hyperparathyroidism and was endocrinology Dr. Sesay refer her to surgery for evaluation of parathyroidectomy. As per patient she had a biopsy and received a call saying that she will follow-up with improvement advisor Dr. Sesay but has not seen him and does not have an appointment scheduled. I will repeat parathyroid scan and order labs related to this matter. Denies any chest pain or shortness of breath. [facility] Medical History (Updated 12/19/23 @ 17:00 by Natividad Valdes MD) Hypovitaminosis D Immunization due Hypercalcemia Physical exam Dyspnea Class 1 obesity with body mass index (BMI) of 31.0 to 31.9 in adult Dyslipidemia B12 deficiency Essential hypertension Surgical History H/O hemorrhoidectomy History of tubal ligation Family History Father Hypertension Mother No problems noted. Social History Housing: Apartment Alcohol intake: current Alcohol intake frequency: holidays/special occasions only Alcohol type: wine Patient Tobacco Use Status: Former Tobacco user Tobacco use type: Cigarette e-Cigarette/Vaping Use: Never Used Second Hand Smoke Exposure: No service: No Current occupational status: employed Current occupation: rt hand Current occupational exposures/hazards: No Cognitive needs: No Hearing needs: No Vision needs: No Questionnaire PHQ-9 Over the last 2 weeks, how often have you been bothered by any of the following problems? 1. Little interest or pleasure in doing things: not at all 2. Feeling down, depressed, or hopeless: not at all 3. Trouble falling or staying asleep, or sleeping too much: not at all 4. Feeling tired or having little energy: not at all 5. Poor appetite or overeating: not at all 6. Feeling bad about yourself - or that you are a failure or have let yourself or your family down: not at all 7. Trouble concentrating on things, such as reading the newspaper or watching television: not at all 8. Moving or speaking so slowly that other people could have noticed. Or the opposite - being so fidgety or restless that you have been moving around a lot more than usual: not at all 9. Thoughts that you would be better off or of hurting yourself in some way: not at all Total score: 0 Depression Screening Interpretation: Negative Depression Screening Done: Yes 01070 - PHQ-9 Billing: Yes Source: Developed by Drs. Martin Katz, Amberly Morillo, Tom Mars and colleagues, with an educational teresa from [employer]. Thrive Questionnaire Date Thrive assessed: 12/19/23 I am a: Patient What is your living situation today?: I have a steady place to live Within the past 12 months, did the food you bought not last and you didn't have the money to get more?: Never true Within the past 12 months, did you worry whether your food would run out before you got money to buy more?: Never true Do you have trouble paying for medicines?: No Do you have trouble getting transportation to medical appointments?: No Do you have trouble paying your heating and electricity bill?: No Do you have trouble taking care of your child, family member or friend?: No Do you have trouble with day-to-day activities such as bathing, preparing meals, shopping, managing finances, etc.?: No Are you currently unemployed and looking for a job?: No Are you interested in more education?: No Please select the resources that you would like help with: None Currently or been in a relationship where the following occur: no concerns reported THRIVE Score: 0 AUDIT C Alcohol Use Questionnaire (AUDIT-C) 1. How often do you have a drink containing alcohol?: Monthly or less 2. How many drinks containing alcohol do you have on a typical day when you are drinking?: 1 or 2 3. How often do you have six or more drinks on one occasion?: Never Total Score: 1 Score Reviewed/Action Taken: No XIMENA-7 AMB Questionnaire XIMENA-7 Date XIMENA - 7 assessed: 12/19/23 Feeling nervous, anxious, or on edge: 0 = Not at all Not being able to stop or control worryin = Not at all Worrying too much about different things: 0 = Not at all Trouble relaxin = Not at all Being so restless that it is hard to sit still: 0 = Not at all Becoming easily annoyed or irritable: 0 = Not at all Feeling afraid as if something awful might happen: 0 = Not at all Total XIMENA-7 score (0-4 normal; 5-9 mild; 10-14 moderate; 15-21 severe): 0 Source: Developed by Drs. Martin Katz, Amberly Morillo, Tom Mars and colleagues, with an educational teresa from [employer]. XIMENA-7 Assessment Billing XIMENA-7 Assessment Tool: XIMENA-7 Assessment 33357 Review of Systems Const All systems reviewed & are unremarkable except as noted in HPI and below Eyes Reports no additional complaints, Denies change in vision and Denies other visual disturbances Card Denies chest pain at rest, Denies chest pain with activity, Denies edema, Denies irregular heart rhythm, Denies claudication, Denies dyspnea, Denies dyspnea on exertion, Denies orthopnea, Denies paroxysmal nocturnal dyspnea and Denies slow heart rate Resp Denies cough, Denies dyspnea and Denies dyspnea on exertion GI Denies abdominal pain, Denies change in bowel habits, Denies excessive flatus, Denies nausea and Denies vomiting Skin/Breast Denies bleeding lesions, Denies changing lesions and Denies rash Neuro Denies behavioral changes, Denies confusion and Denies lack of coordination Psych Denies behavioral changes and Denies confusion Physical exam (Primary Care) Vital Signs: Last Vital Signs BP 152/80 H 12/19/23 16:28 BMI result Body Mass Index 32.9 Tobacco/Smoking Status: Tobacco use Status Tobacco use date assessed 12/19/23 12/19/23 16:35 Patient Tobacco Use Status Former Tobacco user 12/19/23 16:35 Tobacco use type Cigarette 12/19/23 16:35 e-Cigarette/Vaping Use Never Used 12/19/23 16:35 PHQ-9: PHQ-9 Score PHQ-9: Total score 0 12/19/23 16:35 Depression Screening Interpretation: Negative Thrive Assessment: Date of Thrive Assessment Date Thrive assessed 12/19/23 12/19/23 16:35 Currently or been in a relationship where the following occur: no concerns reported Const General: No confusion Orientation/consciousness: patient oriented x3 and No confusion HENMT Head: Yes normal to inspection, Yes normocephalic and Yes atraumatic Ears: external ears normal Eyes General: appearance normal, both eyes and all related structures Eyelids: Yes eyelids normal Conjunctivae: conjunctivae normal Neck Neck: Yes normal visual inspection and Yes supple Thyroid: multiple palpable nodules Resp Effort & Inspection: normal respiratory effort Auscultation: clear to auscultation bilaterally Cardio Jugular venous distension: no JVD Rate: regular rate Rhythm: regular rhythm Heart sounds: S1 normal heart sound present and S2 normal heart sound present GI Inspection: Yes normal to inspection Palpation (GI): Soft to palpation and nontender Auscultation: normal bowel sounds Skin General skin exam: no rashes or lesions noted Neuro General: patient oriented x3, no focal motor deficits and No confusion Extrem General: Yes full ROM Psych Appearance: grossly normal Assessment and Plan Assessment & Plan (1) Physical exam: Code(s): Z00.00 - Encounter for general adult medical examination without abnormal findings Plan: Repeat in a year. (2) Primary hyperparathyroidism: Code(s): E21.0 - Primary hyperparathyroidism Plan: Labs ordered. Parathyroid scan ordered. Orders: Orders NM parathyroid SPECT Today E21.0 - Primary hyperparathyroidism Vitamin B12 and Folate 4 Months E53.8 - Deficiency of other specified B group vitamins Vitamin D 25-OH Total 4 Months E55.9 - Vitamin D deficiency, unspecified IRON PROFILE 4 Months D64.9 - Anemia, unspecified Parathyroid Hormone Intact 4 Months E21.0 - Primary hyperparathyroidism Calcium, Ionized 4 Months E21.0 - Primary hyperparathyroidism US thyroid Today E04.2 - Nontoxic multinodular goiter Complete Blood Count Auto Diff 4 Months D64.9 - Anemia, unspecified Calcium, 24 Hr Ur 4 Months E21.0 - Primary hyperparathyroidism XR DEXA axial skeleton Today N95.9 - Unspecified menopausal and perimenopausal disorder Albumin Level 4 Months E21.0 - Primary hyperparathyroidism Coding Level of Care Code Est Pt Prev Care 40-64y(46837) Diagnoses Physical exam Z00.00 Primary hyperparathyroidism E21.0 Additional Codes XIMENA-7 Assessment Billing - XIMENA-7 Assessment Tool: XIMENA-7 Assessment 07464 ([id number]) Time Spent (min) 35
== END 2023-12-19 17:14 | disposition home or self-care (01) ==
PROVIDERS: PCP Internal Medicine; Visit Provider Internal Medicine
DX: Z00.00 Encounter for general adult medical examination without abnormal findings (principal); E21.0 Primary hyperparathyroidism; Z86.010 Personal history of colon polyps; I10 Essential (primary) hypertension
CPT/HCPCS: 99396

== ENCOUNTER 2024-09-16 16:40 | Outpatient (AMB) | payer OTHER, SELFPAY ==
[2024-09-16 16:45] VITALS: BP 156/100; BMI 34.0
--- NOTE | 2024-09-16 16:45 | A.OFFPC_ITS ---
Vital Signs 09/16/24 16:45 Height 5 ft 1 in Weight 180 lb BMI 34.0 BP 156/100 H Blood Pressure Location Lt brachial Position Sitting Intake Visit Reasons: bp Intake Note: Patient here for a follow up BP Foundry Manager Required: Yes Foundry Manager Language: Academic Affairs Vice President Name: Natividad Valdes MD Information Interpreted: non-clinical & clinical Accompanied by: Self / Same As Patient Allergies No Known Allergies Allergy (Verified 09/16/24 16:55) Medication List - Last Reconciled 09/16/24 by Natividad Valdes MD atorvastatin 40 mg PO QPM 90 days cholecalciferol (vitamin D3) 50 mcg PO DAILY 90 days folic acid 1 mg PO DAILY 90 days hydrocortisone 2.5% (Proctosol HC) 1 appl VT BEDTIME PRN lisinopril 30 mg PO DAILY 90 days methylcellulose (laxative) (Citrucel) 500 mg PO BID nabumetone 750 mg PO BID Tobacco use date assessed: 09/16/24 Dental Screening Dental Screen Date: 09/16/24 Did you have a dental visit in the last 12 months?: No Did you have a dental problem in the last 6 months where you did not have access to dental care?: No Was dental information given to patient?: Patient has dentist HPI HPI Comments History of Present Illness Details The patient is a 59-year-old female presenting with follow-up on blood pressure management. She reports inconsistent blood pressure readings, noting that they are typically elevated when measured in a medical setting but stabilize to approximately 130/80 mmHg when measured at home. The onset of these disparities aligns with anxious feelings she experiences upon leaving home for medical visits. She has also undergone prior procedures, including hemorrhoidectomy and tubal ligation. The patient is aware of the need for a colonoscopy for routine cancer screening and acknowledges having one scheduled. Her osteoporosis screening, a bone densitometry, was last conducted in 2021 and is anticipated again, as per Dr. Sesay's recommendation. She has primary hyperparathyroidism that was follow by Endocrinology which refer him to surgeon for parathyroidectomy. I will reorder labs and refer her again. [facility] Medical History Hypovitaminosis D Immunization due Hypercalcemia Physical exam Dyspnea Class 1 obesity with body mass index (BMI) of 31.0 to 31.9 in adult Dyslipidemia B12 deficiency Essential hypertension Surgical History H/O hemorrhoidectomy History of tubal ligation Family History Father Hypertension Mother No problems noted. Social History Housing: Apartment Alcohol intake: current Alcohol intake frequency: holidays/special occasions only Alcohol type: wine Patient Tobacco Use Status: Former Tobacco user Tobacco use type: Cigarette e-Cigarette/Vaping Use: Never Used Second Hand Smoke Exposure: No service: No Current occupational status: employed Current occupation: rt hand Current occupational exposures/hazards: No Cognitive needs: No Hearing needs: No Vision needs: No Questionnaire PHQ-9 Over the last 2 weeks, how often have you been bothered by any of the following problems? 1. Little interest or pleasure in doing things: not at all 2. Feeling down, depressed, or hopeless: not at all 3. Trouble falling or staying asleep, or sleeping too much: not at all 4. Feeling tired or having little energy: not at all 5. Poor appetite or overeating: not at all 6. Feeling bad about yourself - or that you are a failure or have let yourself or your family down: not at all 7. Trouble concentrating on things, such as reading the newspaper or watching television: not at all 8. Moving or speaking so slowly that other people could have noticed. Or the opposite - being so fidgety or restless that you have been moving around a lot more than usual: not at all 9. Thoughts that you would be better off or of hurting yourself in some way: not at all Total score: 0 Depression Screening Interpretation: Negative Depression Screening Done: Yes 22846 - PHQ-9 Billing: Yes Source: Developed by Drs. Martin Katz, Amberly Morillo, Tom Mars and colleagues, with an educational teresa from [employer]. Thrive Questionnaire Date Thrive assessed: 09/16/24 I am a: Patient What is your living situation today?: I have a steady place to live Within the past 12 months, did the food you bought not last and you didn't have the money to get more?: Never true Within the past 12 months, did you worry whether your food would run out before you got money to buy more?: Never true Do you have trouble paying for medicines?: No Do you have trouble getting transportation to medical appointments?: No Do you have trouble paying your heating and electricity bill?: No Do you have trouble taking care of your child, family member or friend?: No Do you have trouble with day-to-day activities such as bathing, preparing meals, shopping, managing finances, etc.?: No Are you currently unemployed and looking for a job?: No Are you interested in more education?: No Please select the resources that you would like help with: None Currently or been in a relationship where the following occur: No concerns reported THRIVE Score: 0 AUDIT C Alcohol Use Questionnaire (AUDIT-C) 1. How often do you have a drink containing alcohol?: Monthly or less 2. How many drinks containing alcohol do you have on a typical day when you are drinking?: 1 or 2 3. How often do you have six or more drinks on one occasion?: Never Total Score: 1 Score Reviewed/Action Taken: No XIMENA-7 AMB Questionnaire XIMENA-7 Date XIMENA - 7 assessed: 09/16/24 Feeling nervous, anxious, or on edge: 0 = Not at all Not being able to stop or control worryin = Not at all Worrying too much about different things: 0 = Not at all Trouble relaxin = Not at all Being so restless that it is hard to sit still: 0 = Not at all Becoming easily annoyed or irritable: 0 = Not at all Feeling afraid as if something awful might happen: 0 = Not at all Total XIMENA-7 score (0-4 normal; 5-9 mild; 10-14 moderate; 15-21 severe): 0 Source: Developed by Drs. Martin Katz, Amberly Morillo, Tom Mars and colleagues, with an educational teresa from [employer]. XIMENA-7 Assessment Billing XIMENA-7 Assessment Tool: XIMENA-7 Assessment 10412 Review of Systems Const All systems reviewed & are unremarkable except as noted in HPI and below Card Denies chest pain at rest, Denies chest pain with activity, Denies edema, Denies irregular heart rhythm, Denies claudication, Denies dyspnea, Denies dyspnea on exertion, Denies orthopnea, Denies paroxysmal nocturnal dyspnea and Denies slow heart rate Resp Denies cough, Denies dyspnea and Denies dyspnea on exertion GI Denies abdominal pain, Denies change in bowel habits, Denies excessive flatus, Denies nausea and Denies vomiting Physical exam (Primary Care) Vital Signs: Last Vital Signs BP 156/100 H 09/16/24 16:45 BMI result Body Mass Index 34.0 BMI Assessment/Plan discussion: High BMI High, discussed plan: lifestyle, weight reduction, dietary and physical activity Tobacco/Smoking Status: Tobacco use Status Tobacco use date assessed 09/16/24 09/16/24 16:49 Patient Tobacco Use Status Former Tobacco user 09/16/24 16:49 Tobacco use type Cigarette 09/16/24 16:49 e-Cigarette/Vaping Use Never Used 09/16/24 16:49 PHQ-9: PHQ-9 Score PHQ-9: Total score 0 09/16/24 16:49 Depression Screening Interpretation: Negative Thrive Assessment: Date of Thrive Assessment Date Thrive assessed 09/16/24 09/16/24 16:49 Currently or been in a relationship where the following occur: No concerns reported Resp Effort & Inspection: normal respiratory effort Auscultation: clear to auscultation bilaterally Cardio Jugular venous distension: no JVD Rate: regular rate Rhythm: regular rhythm Heart sounds: S1 normal heart sound present and S2 normal heart sound present Extrem General: Yes full ROM Office Procedures Flu Questionnaire Does the patient have a severe egg allergy?: No Immunizations Fluarix Triv [id number] (PF) 45 mcg (15 mcg x 3)/0.5 mL IM syringe Performing Provider: Natividad Valdes MD [facility] [place] [facility] Documented (not given) by: ERICA Kuhn on 09/16/24 16:49 Reason Not Given: Patient Refused Coding Level of Care Code Est Pt Level 4 (18601) Complex EM visit Add On G2211 Diagnoses Primary hyperparathyroidism E21.0 Essential hypertension I10 Dyslipidemia E78.5 Hypovitaminosis D E55.9 Additional Codes PHQ-9 - 19191 - PHQ-9 Billing: Yes ([id number]) XIMENA-7 Assessment Billing - XIMENA-7 Assessment Tool: XIMENA-7 Assessment 25672 ([id number]) Time Spent (min) 23 Assessment & Plan Assessment & Plan (1) Primary hyperparathyroidism: Code(s): E21.0 - Primary hyperparathyroidism Category: Medical (2) Essential hypertension: Code(s): I10 - Essential (primary) hypertension Category: Medical (3) Dyslipidemia: Code(s): E78.5 - Hyperlipidemia, unspecified Category: Medical (4) Hypovitaminosis D: Code(s): E55.9 - Vitamin D deficiency, unspecified Category: Medical Plan - Reevaluate blood pressure levels with a monitor and assess after three weeks. - Schedule a follow-up appointment after three weeks to review blood pressure status. - Conduct a scheduled colonoscopy as planned and ensure bone densitometry is updated as indicated. - Monitor for any thyroid changes and consider further evaluation if necessary. - Refer for mammography update as last taken in 2022 and due per routine guidelines. Patient was informed and verbally consented to the use of an ambient scribe for clinic note documentation during this visit. I discussed the potential for anxiety to influence blood pressure readings in office settings and recommended home monitoring for more consistent evaluations. We agreed to reassess her blood pressure in three weeks with an office measurement. I confirmed the need for a follow-up colonoscopy and reiterated the importance of osteoporosis screening, with the last evaluation in 2022. We also discussed updating the mammography and thyroid evaluations per routine recommen dations. The patient understood the approach and expressed readiness to comply with the outlined plan. Orders: Orders 2 Influenza [id number] Immunization Today Z23 - Encounter for immunization IRON PROFILE 4 Months D64.9 - Anemia, unspecified MM tomosynthesis screening BI Today Z12.31 - Encounter for screening mammogram for malignant neoplasm of breast Vitamin B12 and Folate 4 Months E53.8 - Deficiency of other specified B group vitamins Vitamin D 25-OH Total 4 Months E55.9 - Vitamin D deficiency, unspecified Parathyroid Hormone Intact 4 Months E21.0 - Primary hyperparathyroidism Complete Blood Count Auto Diff 4 Months D64.9 - Anemia, unspecified Vitamin D 25-OH Total Today E55.9 - Vitamin D deficiency, unspecified Lipid Panel 4 Months E78.5 - Hyperlipidemia, unspecified Comprehensive [place]. Panel Fast 4 Months E04.2 - Nontoxic multinodular goiter XR DEXA axial skeleton Today Z78.0 - Asymptomatic menopausal state Phosphorus 4 Months E21.0 - Primary hyperparathyroidism Calcium, 24 Hr Ur 4 Months E21.0 - Primary hyperparathyroidism Referrals General Surgery Referral E21.0 - Primary hyperparathyroidism Open Access Screening Colonoscopy Referral Z12.12 - Encounter for screening for malignant neoplasm of rectum Patient Instructions: - Monitor blood pressure at home and record readings over the next three weeks. - Return for blood pressure reevaluation in three weeks. - Attend the scheduled colonoscopy as planned. - Ensure updates on bone density and mammogram tests within routine intervals. - Reach out if experiencing any new concerning symptoms or questions about thyroid health.
== END 2024-09-16 17:07 | disposition home or self-care (01) ==
PROVIDERS: PCP Internal Medicine; Visit Provider Internal Medicine
DX: E21.0 Primary hyperparathyroidism (principal); I10 Essential (primary) hypertension; E78.5 Hyperlipidemia, unspecified; E55.9 Vitamin D deficiency, unspecified; Z23 Encounter for immunization

== ENCOUNTER → 2024-09-16 16:40 | Outpatient (BNVA) | payer OTHER, SELFPAY | PROVIDERS: PCP Internal Medicine; Visit Provider Internal Medicine | DX: E21.0 Primary hyperparathyroidism (principal); I10 Essential (primary) hypertension; E78.5 Hyperlipidemia, unspecified; E55.9 Vitamin D deficiency, unspecified | CPT/HCPCS: 90471; 96127; 99212 ==

== ENCOUNTER 2024-12-27 09:16 | Outpatient (REF) | payer OTHER, SELFPAY ==
[2024-12-27 09:48] LABS: MANUAL DIFF FLAG NO
[2024-12-27 10:52] LABS: Basophils Absolute Auto 0.1 X10*3/uL (0.0-0.2); Basophils Percent Auto 0.8 % (0-2); Eosinophils Absolute Auto 0.2 X10*3/uL (0.0-0.4); Eosinophils Percent Auto 3.1 % (0-4); Hematocrit 28.7 % (37.0-47.0); Hemoglobin 8.4 g/dl (12.0-16.0); Imm Gran Abs Auto 0.02 X10*3/uL (0.00-0.03); Imm Gran Pct Auto 0.3 % (0.0-0.4); Lymphocytes Absolute Auto 2.3 X10*3/uL (1.2-4.9); Lymphocytes Percent Auto 31.8 % (20-40); Mean Corpuscular HGB Conc 29.3 g/dl (31.0-35.0); Mean Corpuscular Hemoglobin 22.1 pg (27.0-33.0); Mean Corpuscular Volume 75.5 fL (80.0-98.0); Mean Platelet Volume 9.4 fL (9.4-12.3); Monocytes Absolute Auto 0.7 X10*3/uL (0.1-1.2); Monocytes Percent Auto 10.3 % (2-11); Neutrophils Absolute Auto 3.9 x10*3/uL (2.0-8.3); Neutrophils Percent Auto 53.7 % (45-73); Platelet Count 630 X10*3/uL (160-400); Red Cell Distribution Width 18.1 % (11.0-16.0); White Blood Count 7.2 X10*3/uL (4.8-10.8)
[2024-12-27 11:30] LABS: Parathyroid Hormone Intact 200.7 pg/mL (8.7-77.1)
[2024-12-27 11:40] LABS: Alanine Aminotransferase 24 U/L (0-31); Albumin Level 3.7 g/dL (3.5-5.0); Anion Gap 10 (12-20); Aspartate Amino Transferase 35 U/L (5-31); Bilirubin Total 0.3 mg/dL (0.0-1.0); Blood Urea Nitrogen 10 mg/dL (9-16); Calcium 9.4 mg/dL (8.4-10.2); Carbon Dioxide 24 mmol/L (22-29); Chloride 113 mmol/L (96-108); Cholesterol 130 mg/dL (<200); Estimated Glomerular Filt Rate > 60; Glucose Fasting 81 mg/dL (60-99); HDL Cholesterol 43 mg/dL (>40); Iron 12 mcg/dL (30-160); LDL Cholesterol Calculated 66 mg/dL (<100); Percent Iron Saturation 4 % (15-50); Potassium 4.1 mmol/L (3.3-5.1); Sodium 143 mmol/L (135-145); Total Iron Binding Capacity 316 mcg/dL (228-428); Total Protein 7.1 g/dL (6.5-8.0); Triglycerides 109 mg/dL (<150); Unsaturated Iron Binding 304 ug/dL
[2024-12-27 11:50] LABS: Vitamin D 25-OH Total 27.2 ng/mL (>30)
[2024-12-27 12:01] LABS: Folate 13.4 ng/mL (> or = 4.0); Vitamin B12 191 pg/mL (200-900)
[2024-12-27 13:11] LABS: Alkaline Phosphatase 136 U/L (39-117)
[2024-12-30 18:54] LABS: Calcium, Ionized 5.6 mg/dL (4.7-5.5)
== END 2024-12-27 09:17 | disposition home or self-care (01) ==
LOC: HO.LAB 09:16
PROVIDERS: PCP Internal Medicine; Visit Provider Internal Medicine
DX: E21.0 Primary hyperparathyroidism (principal); E53.8 Deficiency of other specified B group vitamins; D64.9 Anemia, unspecified; E55.9 Vitamin D deficiency, unspecified; E04.2 Nontoxic multinodular goiter; E78.5 Hyperlipidemia, unspecified
CPT/HCPCS: 36415; 80053; 80061; 82306; 82330; 82607; 82746; 83540; 83970; 84100; 85025

== ENCOUNTER 2024-12-29 08:22 | Outpatient (REF) | payer OTHER, SELFPAY ==
[2024-12-30 18:54] LABS: Calcium, 24 Hr Urine 119 mg/24 h; Calcium/Creatinine Ratio 102 mg/g creat (30-275); Creatinine 24Hr Urine 1.16 g/24 h (0.50-2.15)
== END 2024-12-29 08:23 | disposition home or self-care (01) ==
LOC: HO.LNP 08:22
PROVIDERS: Visit Provider Internal Medicine
DX: E21.0 Primary hyperparathyroidism (principal)
CPT/HCPCS: 82340

== ENCOUNTER 2025-01-01 16:45 | Outpatient (AMB) | payer OTHER, SELFPAY ==
[2025-01-01 16:47] VITALS: BP 140/70; BMI 33.4
--- NOTE | 2025-01-01 16:47 | A.OFFPC_ITS ---
Vital Signs 01/01/25 16:47 Height 5 ft 1 in Weight 177 lb BMI 33.4 BP 140/70 H Blood Pressure Location Lt brachial Position Sitting Intake Visit Reasons: annual exam Intake Note: Patient here for a physical exam Human Resource Officer Required: No Accompanied by: Self / Same As Patient Allergies No Known Allergies Allergy (Verified 01/01/25 17:27) Medication List - Last Reconciled 01/01/25 by Natividad Valdes MD atorvastatin 40 mg PO QPM 90 days cholecalciferol (vitamin D3) 50 mcg PO DAILY 90 days folic acid 1 mg PO DAILY 90 days lisinopril 30 mg PO DAILY 90 days Tobacco use date assessed: 09/16/24 Dental Screening Dental Screen Date: 09/16/24 HPI HPI Comments History of Present Illness Details The patient is a 59-year-old female presenting for her annual physical examination. Her longstanding history of essential hypertension appears improved with home readings, while office measurements indicate situational anxiety- induced elevations. Diagnosed with osteoporosis in 2021, the patient has not pursued subsequent management. She reports a decrease in hemoglobin indicative of iron deficiency, although she denies significant symptoms like fatigue. Her history includes internal hemorrhoids with occasional bleeding and reactive thrombocytosis as revealed by recent lab findings. Despite prior elevated parathyroid hormone levels, she has not undergone thyroidectomy, raising a concern about hyperparathyroidism. Her B12 levels are low, and management is planned to address potential deficiencies. The patient maintains a history of smoking cessation 19 years ago and minimal alcohol consumption. Routine health screenings, including mammography and papanicolaou tests, need to be updated. - Discussed possible need for tetanus va ccination given absence in records. - Mammography last performed in 2022; gary blue needs to schedule follow-up. - Osteoporosis diagnosed via densitometr y in 2021 without recent follow-up. - Hemoglobin significantly reduced, grace cating iron deficiency anemia. - Discussed a need for parathyroid hormo ne monitoring related to hypercalcemia. - Noted B12 deficiency with planned inte rvention using vitamin B12 injections. - Reviewed vitamin D levels, which are s lightly low at 27.2; continue supplementation. - Cholesterol output is within excellent parameters. - Reviewed screening options for interna l bleeding, including Cologuard and colonoscopy. [facility] Medical History (Updated 01/01/25 @ 17:45 by Natividad Valdes MD) Hypovitaminosis D Immunization due Hypercalcemia Physical exam Dyspnea Class 1 obesity with body mass index (BMI) of 31.0 to 31.9 in adult Dyslipidemia B12 deficiency Essential hypertension Surgical History H/O hemorrhoidectomy History of tubal ligation Family History Father Hypertension Mother No problems noted. Social History Housing: Apartment Alcohol intake: current Alcohol intake frequency: holidays/special occasions only Alcohol type: wine Patient Tobacco Use Status: Former Tobacco user Tobacco use type: Cigarette e-Cigarette/Vaping Use: Never Used Second Hand Smoke Exposure: No service: No Current occupational status: employed Current occupation: rt hand Current occupational exposures/hazards: No Cognitive needs: No Hearing needs: No Vision needs: No Questionnaire PHQ-9 Over the last 2 weeks, how often have you been bothered by any of the following problems? 1. Little interest or pleasure in doing things: not at all 2. Feeling down, depressed, or hopeless: not at all 3. Trouble falling or staying asleep, or sleeping too much: not at all 4. Feeling tired or having little energy: not at all 5. Poor appetite or overeating: not at all 6. Feeling bad about yourself - or that you are a failure or have let yourself or your family down: not at all 7. Trouble concentrating on things, such as reading the newspaper or watching television: not at all 8. Moving or speaking so slowly that other people could have noticed. Or the opposite - being so fidgety or restless that you have been moving around a lot more than usual: not at all 9. Thoughts that you would be better off or of hurting yourself in some way: not at all Total score: 0 Depression Screening Interpretation: Negative Depression Screening Done: Yes 45169 - PHQ-9 Billing: Yes Source: Developed by Drs. Martin Katz, Amberly Morillo, Tom Mars and colleagues, with an educational teresa from [employer]. Thrive Questionnaire Date Thrive assessed: 01/01/25 I am a: Patient What is your living situation today?: I have a steady place to live Within the past 12 months, did the food you bought not last and you didn't have the money to get more?: Never true Within the past 12 months, did you worry whether your food would run out before you got money to buy more?: Never true Do you have trouble paying for medicines?: No Do you have trouble getting transportation to medical appointments?: No Do you have trouble paying your heating and electricity bill?: No Do you have trouble taking care of your child, family member or friend?: No Do you have trouble with day-to-day activities such as bathing, preparing meals, shopping, managing finances, etc.?: No Are you currently unemployed and looking for a job?: No Are you interested in more education?: No Please select the resources that you would like help with: None THRIVE Score: 0 XIMENA-7 AMB Questionnaire XIMENA-7 Date XIMENA - 7 assessed: 09/16/24 Source: Developed by Drs. Martin Katz, Amberly Morillo, Tom Mars and colleagues, with an educational teresa from [employer]. Review of Systems Const All systems reviewed & are unremarkable except as noted in HPI and below Card Denies chest pain at rest, Denies chest pain with activity, Denies edema, Denies irregular heart rhythm, Denies claudication, Denies dyspnea, Denies dyspnea on exertion, Denies orthopnea, Denies paroxysmal nocturnal dyspnea and Denies slow heart rate Resp Denies cough, Denies dyspnea and Denies dyspnea on exertion GI Denies abdominal pain, Denies change in bowel habits, Denies excessive flatus, Denies nausea and Denies vomiting Physical exam (Primary Care) Vital Signs: Last Vital Signs BP 140/70 H 01/01/25 16:47 BMI result Body Mass Index 33.4 BMI Assessment/Plan discussion: High BMI High, discussed plan: lifestyle, weight reduction, dietary and physical activity Tobacco/Smoking Status: Tobacco use Status Tobacco use date assessed 09/16/24 01/01/25 16:52 Patient Tobacco Use Status Former Tobacco user 01/01/25 16:52 Tobacco use type Cigarette 01/01/25 16:52 e-Cigarette/Vaping Use Never Used 01/01/25 16:52 PHQ-9: PHQ-9 Score PHQ-9: Total score 0 01/01/25 17:31 Depression Screening Interpretation: Negative Thrive Assessment: Date of Thrive Assessment Date Thrive assessed 01/01/25 01/01/25 16:52 HENNM Head: Yes normal to inspection, Yes normocephalic and Yes atraumatic Ears: external ears normal Eyes General: appearance normal, both eyes and all related structures Eyelids: Yes eyelids normal Conjunctivae: conjunctivae normal Neck Neck: Yes normal visual inspection and Yes supple Resp Effort & Inspection: normal respiratory effort Auscultation: clear to auscultation bilaterally Cardio Jugular venous distension: no JVD Rate: regular rate Rhythm: regular rhythm Heart sounds: S1 normal heart sound present and S2 normal heart sound present GI Inspection: Yes normal to inspection Palpation (GI): Soft to palpation and nontender Auscultation: normal bowel sounds Skin General skin exam: no rashes or lesions noted Neuro General: no focal motor deficits Extrem General: Yes full ROM Psych Appearance: grossly normal Coding Level of Care Code Est Pt Level 3 (55556) Est Pt Prev Care 40-64y(28929) Diagnoses Physical exam Z00.00 Primary hyperparathyroidism E21.0 Iron (Fe) deficiency anemia D50.9 B12 deficiency E53.8 Additional Codes PHQ-9 - 84292 - PHQ-9 Billing: Yes ([id number]) Time Spent (min) 34 Assessment & Plan Assessment & Plan (1) Physical exam: Code(s): Z00.00 - Encounter for general adult medical examination without abnormal findings Category: Medical (2) Primary hyperparathyroidism: Code(s): E21.0 - Primary hyperparathyroidism Category: Medical (3) Iron (Fe) deficiency anemia: Code(s): D50.9 - Iron deficiency anemia, unspecified Category: Medical (4) B12 deficiency: Code(s): E53.8 - Deficiency of other specified B group vitamins Category: Medical Plan I have prescribed iron supplementation to manage the patient's anemia, attributed to iron deficiency, and will monitor its effectiveness. Referral for a colonoscopy was made to investigate potential gastrointestinal bleeding sources, especially given her hemorrhoidal history. We will continue evaluating her blood pressure which improves at home but spikes in-office due to situational anxiety. Follow-up for osteoporosis, parathyroid monitoring, and deficiency management via injections will be vital moving forward. Her excellent cholesterol levels were acknowledged, and further screenings, including mammography and a potential thyroidectomy discussion, were prioritized. Future endocrinology consultation may be necessary to address her parathyroid and calcium abnormalities. Patient was informed and verbally consented to the use of an ambient scribe for clinic note documentation during this visit. I engaged in a detailed discussion regarding the low hemoglobin levels and the likelihood of iron deficiency anemia, explaining the need for iron supplementation, while discussing the possible gastrointestinal source of bleeding, such as hemorrhoids, suggesting a colonoscopy. We addressed concerns surrounding osteoporosis, emphasizing routine follow-up care. The nuances of her parathyroid and calcium levels were discussed to form a strategy for ongoing management, potentially necessitating endocrinology. Additionally, the importance of managing B12 and vitamin D deficiencies was covered. Future health maintenance requires regular screening updates and continued evaluation of situational anxiety's effect on blood pressure. Orders: Orders MM tomosynthesis screening BI 01/01/25 Z12.31 - Encounter for screening mammogram for malignant neoplasm of breast XR DEXA axial skeleton 01/01/25 Z78.0 - Asymptomatic menopausal state Referrals Open Access Screening Colonoscopy Referral Z12.12 - Encounter for screening for malignant neoplasm of rectum Endocrinology Referral E21.0 - Primary hyperparathyroidism Hematology & Oncology Referral D50.9 - Iron deficiency anemia, unspecified Medications: New ferrous sulfate 325 mg PO TID 90 days 270 tabs 1RF cyanocobalamin (vitamin B-12) 1,000 mcg IM Q4W 30 days 2 mL 3RF syringe with needle (Corban Direct Luer Slip Syringe-Needle) As directed 1 ea 3RF E53.8 - Deficiency of other specified B group vitamins Refilled cholecalciferol (vitamin D3) 50 mcg PO DAILY 90 days 90 caps 1RF E55.9 - Vitamin D deficiency, unspecified Patient Instructions: - Take prescribed iron three times daily; may cause constipation. - Schedule a colonoscopy for further investigation of anemia. - Monitor and record blood pressure at home regularly. - Follow up regarding osteoporosis and calcium levels. - Continue Vitamin D supplementation and watch for B12 injection appointments. - Schedule mammography and other routine examinations as discussed.
== END 2025-01-01 17:38 | disposition home or self-care (01) ==
LOC: HO.HMCH 16:46
PROVIDERS: PCP Internal Medicine; Visit Provider Internal Medicine
DX: Z00.00 Encounter for general adult medical examination without abnormal findings (principal); E21.0 Primary hyperparathyroidism; D50.9 Iron deficiency anemia, unspecified; E53.8 Deficiency of other specified B group vitamins

== ENCOUNTER → 2025-01-01 16:45 | Outpatient (BNVA) | payer OTHER, SELFPAY | PROVIDERS: PCP Internal Medicine; Visit Provider Internal Medicine | DX: Z00.00 Encounter for general adult medical examination without abnormal findings (principal); I10 Essential (primary) hypertension; E21.0 Primary hyperparathyroidism; D50.9 Iron deficiency anemia, unspecified; E53.8 Deficiency of other specified B group vitamins; E55.9 Vitamin D deficiency, unspecified; Z78.0 Asymptomatic menopausal state | CPT/HCPCS: 96127; 99212; 99396 ==

== ENCOUNTER → 2025-02-03 14:26 | Outpatient (BNV) | payer OTHER, SELFPAY | PROVIDERS: PCP Internal Medicine; Referring Provider Internal Medicine; Visit Provider Internal Medicine | DX: D50.9 Iron deficiency anemia, unspecified (principal) | CPT/HCPCS: 99204 ==